=== PATIENT | male | born 1965 | race Caucasian/White ===

== ENCOUNTER → 2023-04-06 08:24 | Outpatient (REF) | payer BC, SELFPAY ==
[2023-04-06 10:15] LABS: ALT (SGPT) 32 U/L (0-50); AST (SGOT) 25 U/L (17-59); Albumin 4.3 g/dl (3.5-5.0); Alkaline Phosphatase 86 U/L (38-126); Blood Urea Nitrogen 16 mg/dl (9-20); Calcium 9.3 mg/dl (8.4-10.2); Carbon Dioxide 27 mmol/L (22-30); Chloride 105 mmol/L (98-107); Glucose 124 mg/dl (70-99); HDL Cholesterol 60 mg/dl; LDL Cholesterol, Calculated 98 mg/dl; Sodium 138 mmol/L (135-145); Total Bilirubin 0.6 mg/dl (0.2-1.3); Total Cholesterol 180 mg/dl (50-199); Total Protein 7.3 g/dl (6.3-8.2); Triglyceride 110 mg/dl (10-149); Very Low Density Lipoprotein 22 mg/dl (0-30); eGFR > 60.00
[2023-04-06 10:16] LABS: % Basophils 0.7 % (0-2); % Eosinophils 4.7 % (0-6); % Immature Granulocytes 0.3 % (0-0.5); % Lymphocytes 35.6 % (20.5-51.1); % Neutrophils 49.7 % (42.2-75.2); Absolute Basophils 0.1 10^3/uL (0-0.2); Absolute Eosinophils 0.3 10^3/uL (0-0.7); Absolute Lymphocytes 2.6 10^3/uL (1.2-3.4); Absolute Monocytes 0.7 10^3/uL (0.1-0.6); Absolute Neutrophils 3.6 10^3/uL (1.4-6.5); Hematocrit 43.4 % (39.0-52.0); Hemoglobin 14.4 g/dL (13.0-18.0); Mean Corp Hgb Conc. 33.2 g/dL (33.0-37.0); Mean Corpuscular Hgb 27.5 pg (27.0-31.0); Mean Platelet Volume 10.1 fL (7.4-10.4); Nucleated Red Blood Cells % 0 % (-); Platelet Count 248 10^3/uL (130-400); Red Blood Cell Count 5.23 10^6/uL (4.70-6.10); Red Cell Dist. Width 13.2 % (11.5-14.5); White Blood Cell Count 7.2 10^3/uL (4.8-10.8)
[2023-04-06 10:21] LABS: Potassium 4.6 mmol/L (3.5-5.1)
[2023-04-06 11:17] LABS: Microalbumin, Random Urine < 0.6 mg/dl (0.6-1.7)
== END ==
LOC: REG 08:24
PROVIDERS: ATTENDING PHYSICIAN Family Medicine
DX: E10.69 Type 1 diabetes mellitus with other specified complication (principal); I10 Essential (primary) hypertension; E78.5 Hyperlipidemia, unspecified
CPT/HCPCS: 36415; 80053; 80061; 82043; 82570; 83036; 85025

== ENCOUNTER → 2023-07-13 07:41 | Outpatient (REF) | payer BC, SELFPAY ==
[2023-07-13 10:08] LABS: ALT (SGPT) 29 U/L (0-50); AST (SGOT) 23 U/L (17-59); Albumin 4.3 g/dl (3.5-5.0); Alkaline Phosphatase 86 U/L (38-126); Blood Urea Nitrogen 15 mg/dl (9-20); Calcium 9.5 mg/dl (8.4-10.2); Carbon Dioxide 25 mmol/L (22-30); Chloride 105 mmol/L (98-107); Glucose 119 mg/dl (70-99); HDL Cholesterol 61 mg/dl; LDL Cholesterol, Calculated 75 mg/dl; Potassium 4.6 mmol/L (3.5-5.1); Sodium 136 mmol/L (135-145); Total Bilirubin 0.5 mg/dl (0.2-1.3); Total Cholesterol 155 mg/dl (50-199); Total Protein 7.4 g/dl (6.3-8.2); Triglyceride 96 mg/dl (10-149); Very Low Density Lipoprotein 19 mg/dl (0-30); eGFR > 60.00
[2023-07-13 12:22] LABS: TSH Reflex To Free T4 4.07 uIU/ml (0.47-4.68)
[2023-07-13 12:54] LABS: Glycohemoglobin (HgbA1c) 7.1 % (4.0-5.6)
== END ==
LOC: REG 07:41
PROVIDERS: ATTENDING PHYSICIAN Internal Medicine Cardiovascular Disease; FAMILY PHYSICIAN Family Medicine
DX: I10 Essential (primary) hypertension (principal); E10.69 Type 1 diabetes mellitus with other specified complication; E78.5 Hyperlipidemia, unspecified; E10.9 Type 1 diabetes mellitus without complications; E66.01 Morbid (severe) obesity due to excess calories; Z68.38 Body mass index [BMI] 38.0-38.9, adult; T46.4X5A Adverse effect of angiotensin-converting-enzyme inhibitors, initial encounter
CPT/HCPCS: 36415; 80053; 80061; 83036; 84443

== ENCOUNTER → 2023-08-07 06:26 | Day surgery (SDC) | payer BC, SELFPAY ==
[2023-08-07 09:06] LABS: Glucose - Point of Care 107 mg/dl (70-99)
== END ==
LOC: GI 06:26
PROVIDERS: ATTENDING PHYSICIAN Surgery
DX: Z12.11 Encounter for screening for malignant neoplasm of colon (principal); K57.30 Diverticulosis of large intestine without perforation or abscess without bleeding; K62.1 Rectal polyp; Z86.010 Personal history of colon polyps
CPT/HCPCS: 45380; 88305; 82962

== ENCOUNTER → 2024-03-28 09:14 | Outpatient (REF) | payer BC, SELFPAY ==
[2024-03-28 09:39] LABS: % Basophils 0.2 % (0-2); % Eosinophils 0.3 % (0-6); % Immature Granulocytes 0.3 % (0-0.5); % Lymphocytes 5.9 % (20.5-51.1); % Monocytes 3.3 % (1.7-9.3); Absolute Lymphocytes 0.7 10^3/uL (1.2-3.4); Absolute Monocytes 0.4 10^3/uL (0.1-0.6); Absolute Neutrophils 10.1 10^3/uL (1.4-6.5); Hematocrit 43.4 % (39.0-52.0); Hemoglobin 14.6 g/dL (13.0-18.0); Mean Corp Hgb Conc. 33.6 g/dL (33.0-37.0); Mean Corpuscular Hgb 27.4 pg (27.0-31.0); Mean Corpuscular Volume 81.4 fL (80.0-94.0); Nucleated Red Blood Cells % 0 % (-); Platelet Count 219 10^3/uL (130-400); Red Blood Cell Count 5.33 10^6/uL (4.70-6.10); White Blood Cell Count 11.3 10^3/uL (4.8-10.8)
[2024-03-28 09:51] LABS: ALT (SGPT) 26 U/L (0-50); AST (SGOT) 22 U/L (17-59); Albumin 4.5 g/dl (3.5-5.0); Alkaline Phosphatase 78 U/L (38-126); Blood Urea Nitrogen 19 mg/dl (9-20); Calcium 8.7 mg/dl (8.4-10.2); Carbon Dioxide 27 mmol/L (22-30); Chloride 100 mmol/L (98-107); Glucose 192 mg/dl (70-99); HDL Cholesterol 66 mg/dl; LDL Cholesterol, Calculated 64 mg/dl; Magnesium 1.9 mg/dl (1.6-2.3); Potassium 4.5 mmol/L (3.5-5.1); Sodium 136 mmol/L (135-145); Total Bilirubin 0.7 mg/dl (0.2-1.3); Total Cholesterol 146 mg/dl (50-199); Total Protein 7.4 g/dl (6.3-8.2); Triglyceride 81 mg/dl (10-149); Uric Acid 4.7 mg/dl (3.5-8.5); Very Low Density Lipoprotein 16 mg/dl (0-30); eGFR > 60.00
[2024-03-28 10:21] LABS: TSH Reflex To Free T4 1.46 uIU/ml (0.47-4.68)
[2024-03-28 13:22] LABS: Glycohemoglobin (HgbA1c) 7.7 % (4.0-5.6)
[2024-03-30 03:08] LABS: Lipoprotein a (Lp a) 29 mg/dL (<=29)
== END ==
LOC: REG 09:14
PROVIDERS: ATTENDING PHYSICIAN Physician Assistant; FAMILY PHYSICIAN Family Medicine
DX: E78.2 Mixed hyperlipidemia (principal); E10.69 Type 1 diabetes mellitus with other specified complication; R53.83 Other fatigue; G47.33 Obstructive sleep apnea (adult) (pediatric); I10 Essential (primary) hypertension; E66.01 Morbid (severe) obesity due to excess calories; E78.5 Hyperlipidemia, unspecified; E06.3 Autoimmune thyroiditis
CPT/HCPCS: 36415; 80053; 80061; 83036; 83695; 83704; 83735; 84443; 84550; 85025

== ENCOUNTER → 2024-05-30 08:20 | Outpatient (REF) | payer BC, SELFPAY ==
[2024-05-30 09:54] LABS: % Basophils 0.5 % (0-2); % Eosinophils 4.2 % (0-6); % Immature Granulocytes 0.2 % (0-0.5); % Lymphocytes 34.3 % (20.5-51.1); % Monocytes 8.2 % (1.7-9.3); % Neutrophils 52.6 % (42.2-75.2); Absolute Eosinophils 0.3 10^3/uL (0-0.7); Absolute Lymphocytes 2.1 10^3/uL (1.2-3.4); Absolute Monocytes 0.5 10^3/uL (0.1-0.6); Absolute Neutrophils 3.3 10^3/uL (1.4-6.5); Hematocrit 44.8 % (39.0-52.0); Mean Corp Hgb Conc. 33.5 g/dL (33.0-37.0); Mean Corpuscular Hgb 27.6 pg (27.0-31.0); Mean Corpuscular Volume 82.4 fL (80.0-94.0); Mean Platelet Volume 10.2 fL (7.4-10.4); Nucleated Red Blood Cells % 0 % (-); Platelet Count 242 10^3/uL (130-400); Red Blood Cell Count 5.44 10^6/uL (4.70-6.10); Red Cell Dist. Width 13.1 % (11.5-14.5); White Blood Cell Count 6.2 10^3/uL (4.8-10.8)
[2024-05-30 10:28] LABS: ALT (SGPT) 22 U/L (0-50); AST (SGOT) 18 U/L (17-59); Albumin 4.3 g/dl (3.5-5.0); Alkaline Phosphatase 75 U/L (38-126); Blood Urea Nitrogen 20 mg/dl (9-20); Calcium 9.6 mg/dl (8.4-10.2); Carbon Dioxide 26 mmol/L (22-30); Chloride 108 mmol/L (98-107); Glucose 114 mg/dl (70-99); HDL Cholesterol 53 mg/dl; LDL Cholesterol, Calculated 73 mg/dl; Potassium 4.9 mmol/L (3.5-5.1); Sodium 144 mmol/L (135-145); Total Bilirubin 0.6 mg/dl (0.2-1.3); Total Cholesterol 142 mg/dl (50-199); Total Protein 7.4 g/dl (6.3-8.2); Triglyceride 84 mg/dl (10-149); Very Low Density Lipoprotein 16 mg/dl (0-30); eGFR > 60.00
[2024-05-30 10:53] LABS: TSH Reflex To Free T4 4.29 uIU/ml (0.47-4.68)
[2024-05-30 11:01] LABS: Glycohemoglobin (HgbA1c) 6.5 % (4.0-5.6)
== END ==
LOC: REG 08:20
PROVIDERS: ATTENDING PHYSICIAN Family Medicine
DX: E10.69 Type 1 diabetes mellitus with other specified complication (principal); E78.5 Hyperlipidemia, unspecified; E06.3 Autoimmune thyroiditis
CPT/HCPCS: 36415; 80053; 80061; 83036; 84443; 85025

== ENCOUNTER → 2024-10-06 06:31 | Outpatient (REF) | payer BC, SELFPAY ==
[2024-10-06 08:33] LABS: Microalb - Urine Creatinine 82.900 mg/dl
[2024-10-06 08:40] LABS: Microalbumin, Random Urine < 0.6 mg/dl (0.6-1.7)
[2024-10-06 09:08] LABS: Glycohemoglobin (HgbA1c) 6.3 % (4.0-5.6)
[2024-10-06 10:06] LABS: PSA, Total - Screen 0.47 ng/ml (0.0-4.0)
[2024-10-06 10:25] LABS: ALT (SGPT) 20 U/L (0-50); AST (SGOT) 20 U/L (17-59); Albumin 4.5 g/dl (3.5-5.0); Alkaline Phosphatase 66 U/L (38-126); Blood Urea Nitrogen 24 mg/dl (9-20); Calcium 9.3 mg/dl (8.4-10.2); Carbon Dioxide 24 mmol/L (22-30); Chloride 108 mmol/L (98-107); Glucose 113 mg/dl (70-99); HDL Cholesterol 54 mg/dl; LDL Cholesterol, Calculated 92 mg/dl; Potassium 4.7 mmol/L (3.5-5.1); Sodium 141 mmol/L (135-145); Total Protein 7.5 g/dl (6.3-8.2); Very Low Density Lipoprotein 15 mg/dl (0-30); eGFR > 60.00
== END ==
LOC: REG 06:31
PROVIDERS: ATTENDING PHYSICIAN Family Medicine
DX: I10 Essential (primary) hypertension (principal); E10.69 Type 1 diabetes mellitus with other specified complication; E10.65 Type 1 diabetes mellitus with hyperglycemia; E10.59 Type 1 diabetes mellitus with other circulatory complications; E78.5 Hyperlipidemia, unspecified; Z12.5 Encounter for screening for malignant neoplasm of prostate
CPT/HCPCS: 36415; 80053; 80061; 82043; 82570; 83036; G0103

== ENCOUNTER → 2025-02-13 07:26 | Outpatient (REF) | payer BC, SELFPAY ==
[2025-02-13 08:26] LABS: Hematocrit 44.6 % (39.0-52.0); Hemoglobin 14.9 g/dL (13.0-18.0); Mean Corp Hgb Conc. 33.4 g/dL (33.0-37.0); Mean Corpuscular Volume 81.7 fL (80.0-94.0); Nucleated Red Blood Cells % 0 % (-); Platelet Count 233 10^3/uL (130-400); Red Cell Dist. Width 13.3 % (11.5-14.5)
[2025-02-13 08:48] LABS: Glycohemoglobin (HgbA1c) 6.6 % (4.0-5.9)
[2025-02-13 09:28] LABS: ALT (SGPT) 23 U/L (0-50); AST (SGOT) 21 U/L (17-59); Albumin 4.4 g/dl (3.5-5.0); Alkaline Phosphatase 72 U/L (38-126); Blood Urea Nitrogen 19 mg/dl (9-20); Calcium 9.1 mg/dl (8.4-10.2); Carbon Dioxide 25 mmol/L (22-30); Chloride 104 mmol/L (98-107); Glucose 128 mg/dl (70-99); HDL Cholesterol 62 mg/dl; LDL Cholesterol, Calculated 90 mg/dl; Potassium 4.6 mmol/L (3.5-5.1); Sodium 136 mmol/L (135-145); Total Protein 7.6 g/dl (6.3-8.2); Very Low Density Lipoprotein 13 mg/dl (0-30); eGFR > 60.00
== END ==
LOC: REG 07:26
PROVIDERS: ATTENDING PHYSICIAN Family Medicine
DX: I10 Essential (primary) hypertension (principal); E10.69 Type 1 diabetes mellitus with other specified complication; E78.5 Hyperlipidemia, unspecified; E66.01 Morbid (severe) obesity due to excess calories; Z68.37 Body mass index [BMI] 37.0-37.9, adult; E66.812 Obesity, class 2; R21 Rash and other nonspecific skin eruption
CPT/HCPCS: 36415; 80053; 80061; 83036; 85025